=== PATIENT | female | born 1940 | race Caucasian/White ===

== ENCOUNTER 2020-10-27 23:24 | Observation (INO) ==
[2020-10-27 23:52] LABS: Basophils # 0.1 10*3/uL (0.0-0.2); Basophils % 0.5 % (0.0-0.8); Eosinophils # 0.4 10*3/uL (0.0-0.87); Hematocrit 33.2 VOL% (35.7-47.0); Hemoglobin 11.2 GM/DL (12.0-16.0); Immature Granulocytes % 0.5 %; Immature Granulocytes Absolute 0.06 #; Lymphocytes # 2.2 10*3/uL (1.4-4.0); Lymphocytes % 16.5 % (21.3-54.2); Mean Corpuscular HGB Conc 33.7 GM/DL (32-36); Mean Corpuscular Volume 92.7 FL (87-102); Mean Platelet Volume 9.3 FL (9.6-12.0); Monocytes % 8.7 % (1.7-12.7); Neutrophils % 70.8 % (38.7-73.9); Platelet Count 267 T/CUMM (130-400); Red Blood Count 3.58 MC/CUMM (3.8-5.5); White Blood Count 13.1 T/CUMM (4-12)
[2020-10-28 00:09] LABS: Albumin 3.9 G/DL (3.4-5.0); Bilirubin,Total 0.4 MG/DL (0.2-1.0); Calcium 9.5 MG/DL (8.5-10.1); Osmolality,Calculated 253.6 MOS/KG (273-304); Potassium 3.8 MMOL/L (3.5-5.1); Total Protein 7.7 G/DL (5.0-7.5)
[2020-10-28] MEDS ORDERED: NITROGLYCERIN SL 0.4 MG TABLET SL STA (00:09)
[2020-10-28] MEDS ORDERED: FUROSEMIDE 40 MG/4 ML VIAL IV STA (01:02)
[2020-10-28] MEDS ORDERED: MORPHINE 4 MG/1 ML VIAL ONE (01:35)
[2020-10-28] MEDS ORDERED: ONDANSETRON 4 MG/2 ML VIAL ONE (01:35)
[2020-10-28] MEDS ORDERED: ONDANSETRON 4 MG/2 ML VIAL IV ONE (01:36)
[2020-10-28] MEDS ORDERED: MORPHINE 4 MG/1 ML VIAL IV STA ×2 (01:36→02:57)
[2020-10-28] MEDS ORDERED: diphenhydrAMINE CAP 25 MG CAPSULE PO PRN (03:28)
[2020-10-28] MEDS ORDERED: MORPHINE 4 MG/1 ML VIAL IV PRN (03:28)
[2020-10-28] MEDS ORDERED: ONDANSETRON 4 MG/2 ML VIAL IV PRN (03:28)
[2020-10-28] MEDS ORDERED: DEXTROSE 50% 25 GM/50 ML VIAL IV PRN (03:28)
[2020-10-28] MEDS ORDERED: ACETAMINOPHEN 325 MG TABLET PO PRN (03:28)
[2020-10-28] MEDS ORDERED: GLUCAGON 1 MG VIAL IM PRN (03:28)
[2020-10-28] MEDS ORDERED: hydrALAZINE 20 MG/1 ML VIAL IV PRN (03:28)
[2020-10-28] MEDS ORDERED: guaiFENesin/DM ER 600-30 MG TABLET PO PRN (03:28)
[2020-10-28 07:25] LABS: Risk Ratio 3.19
[2020-10-28] MEDS: ALBUTEROL/IPRATROPIUM 3 ML NEB RESP TX SCH ×3 (07:50→19:14)
[2020-10-28 08:26] LABS: Calcium 9.3 MG/DL (8.5-10.1); Osmolality,Calculated 250.8 MOS/KG (273-304); Potassium 3.5 MMOL/L (3.5-5.1)
[2020-10-28] MEDS ORDERED: NITROGLYCERIN SL 0.4 MG TABLET SL PRN (08:41)
[2020-10-28 08:58] LABS: Basophils % 0.3 % (0.0-0.8); Eosinophils # 0.2 10*3/uL (0.0-0.87); Eosinophils % 2.2 % (0.00-10.9); Hematocrit 29.3 VOL% (35.7-47.0); Hemoglobin 10.7 GM/DL (12.0-16.0); Immature Granulocytes % 0.4 %; Immature Granulocytes Absolute 0.04 #; Lymphocytes # 1.9 10*3/uL (1.4-4.0); Lymphocytes % 17.6 % (21.3-54.2); Mean Corpuscular HGB Conc 36.5 GM/DL (32-36); Mean Corpuscular Volume 89.6 FL (87-102); Mean Platelet Volume 9.6 FL (9.6-12.0); Neutrophils % 69.5 % (38.7-73.9); Platelet Count 238 T/CUMM (130-400); Red Blood Count 3.27 MC/CUMM (3.8-5.5); Red Cell Distribution Width 11.9 % (9.3-17.3); White Blood Count 10.6 T/CUMM (4-12)
[2020-10-28] MEDS ORDERED: ENOXAPARIN 40 MG/0.4 ML SYRINGE SUBCUT SCH (09:00)
[2020-10-28] MEDS ORDERED: RIVAROXABAN 20 MG TABLET PO SCH ×2 (09:00→21:00)
[2020-10-28] MEDS ORDERED: LOSARTAN/HCTZ 50-12.5 MG TABLET PO SCH (09:00)
[2020-10-28] MEDS ORDERED: SPIRONOLACTONE 50 MG TABLET PO SCH (09:00)
[2020-10-28 09:15] LABS: Osmolality,Calculated 255.4 MOS/KG (273-304); Potassium 3.4 MMOL/L (3.5-5.1)
[2020-10-28] MEDS ORDERED: MAGNESIUM SULF RIDER 4 GM in PREMIX 1 EACH IV PRN (10:00)
[2020-10-28] MEDS ORDERED: MAGNESIUM SULF RIDER 2 GM in PREMIX 1 EACH IV PRN (10:00)
[2020-10-28] MEDS: PANTOPRAZOLE 40 MG TABLET PO SCH (10:04)
[2020-10-28] MEDS: LABETALOL 200 MG TABLET PO SCH ×2 (10:04→20:38)
[2020-10-28] MEDS: FUROSEMIDE 40 MG/4 ML VIAL IV SCH ×2 (10:05→16:06)
[2020-10-28] MEDS: ASPIRIN EC 81 MG TABLET PO SCH (10:05)
[2020-10-28 10:46] LABS: Troponin I < 0.015 NG/ML (0.00-0.045)
[2020-10-28 13:09] LABS: Troponin I < 0.015 NG/ML (0.00-0.045)
[2020-10-28] MEDS ORDERED: POTASSIUM CHLORIDE 20 MEQ TABLET PO ONE (15:08)
[2020-10-28] MEDS ORDERED: ROSUVASTATIN 10 MG TABLET PO SCH (21:00)
[2020-10-29] MEDS: ALBUTEROL/IPRATROPIUM 3 ML NEB RESP TX SCH ×2 (01:46→07:05)
[2020-10-29 04:42] LABS: Basophils % 0.4 % (0.0-0.8); Eosinophils # 0.3 10*3/uL (0.0-0.87); Eosinophils % 3.2 % (0.00-10.9); Hematocrit 29.6 VOL% (35.7-47.0); Hemoglobin 10.4 GM/DL (12.0-16.0); Immature Granulocytes % 0.3 %; Immature Granulocytes Absolute 0.03 #; Lymphocytes # 2.1 10*3/uL (1.4-4.0); Lymphocytes % 22.9 % (21.3-54.2); Mean Corpuscular HGB Conc 35.1 GM/DL (32-36); Mean Corpuscular Volume 90.5 FL (87-102); Mean Platelet Volume 9.9 FL (9.6-12.0); Monocytes % 13.3 % (1.7-12.7); Neutrophils % 59.9 % (38.7-73.9); Platelet Count 238 T/CUMM (130-400); Red Blood Count 3.27 MC/CUMM (3.8-5.5); Red Cell Distribution Width 12.2 % (9.3-17.3)
[2020-10-29 05:05] LABS: Calcium 9.2 MG/DL (8.5-10.1); Osmolality,Calculated 258.5 MOS/KG (273-304)
[2020-10-29 08:06] VITALS: BP 130/64
[2020-10-29] MEDS: ASPIRIN EC 81 MG TABLET PO SCH (08:44)
[2020-10-29] MEDS: PANTOPRAZOLE 40 MG TABLET PO SCH (08:45)
[2020-10-29] MEDS: LABETALOL 200 MG TABLET PO SCH (08:45)
== END 2020-10-29 11:06 | disposition home or self-care (01) ==
LOC: N.EDINP 23:24 → N.ED 23:24 → SUATTDRO 10-28 01:44 → N.TELES 10-28 04:00
PROVIDERS: ADMIT Internal Medicine; ATTEND Internal Medicine

== ENCOUNTER 2020-12-11 21:08 | Inpatient (IN) ==
[2020-12-11] MEDS ORDERED: hydrALAZINE 20 MG/1 ML VIAL IV STA (21:31)
[2020-12-11 22:23] LABS: Basophils # 0.1 10*3/uL (0.0-0.2); Basophils % 0.5 % (0.0-0.8); Eosinophils # 0.2 10*3/uL (0.0-0.87); Eosinophils % 2.4 % (0.00-10.9); Hematocrit 32.6 VOL% (35.7-47.0); Hemoglobin 11.3 GM/DL (12.0-16.0); Immature Granulocytes % 0.3 %; Immature Granulocytes Absolute 0.03 #; Lymphocytes # 2.5 10*3/uL (1.4-4.0); Lymphocytes % 25.1 % (21.3-54.2); Mean Corpuscular HGB Conc 34.7 GM/DL (32-36); Mean Corpuscular Volume 91.1 FL (87-102); Mean Platelet Volume 9.6 FL (9.6-12.0); Monocytes % 9.4 % (1.7-12.7); Neutrophils % 62.3 % (38.7-73.9); Platelet Count 281 T/CUMM (130-400); Red Blood Count 3.58 MC/CUMM (3.8-5.5); White Blood Count 9.9 T/CUMM (4-12)
[2020-12-11 23:01] LABS: Alanine Aminotransferase 22 U/L (13-56); Albumin 3.6 G/DL (3.4-5.0); Alkaline Phosphatase 84 U/L (45-117); Aspartate Amino Transferase 23 U/L (0-37); Blood Urea Nitrogen 16 MG/DL (7-18); Calcium 9.3 MG/DL (8.5-10.1); Carbon Dioxide 22 MMOL/L (21-32); Estimated Glom Filtration Rate 58 ML/MIN; Glucose 98 MG/DL (74-106); Osmolality,Calculated 253.4 MOS/KG (273-304); Potassium 3.9 MMOL/L (3.5-5.1); Sodium 126 MMOL/L (136-145); Total Protein 7.2 G/DL (6.4-8.2)
[2020-12-11 23:02] LABS: PT Patient Result 11.4 SECS (10.5-12.0)
[2020-12-11] MEDS ORDERED: cefTRIAXone 1,000 MG in SODIUM CHLORIDE 0.9% 100 ML IV STA (23:36)
[2020-12-11] MEDS ORDERED: GLUCAGON 1 MG VIAL IM PRN (23:50)
[2020-12-11] MEDS ORDERED: ONDANSETRON 4 MG/2 ML VIAL IV PRN (23:50)
[2020-12-11] MEDS ORDERED: DEXTROSE 50% 25 GM/50 ML VIAL IV PRN (23:50)
[2020-12-11] MEDS ORDERED: hydrALAZINE 20 MG/1 ML VIAL IV PRN (23:50)
[2020-12-12 00:02] LABS: Bilirubin,Urine Negative (Negative); Blood, Urine Small mg/dL (Negative); Glucose,Urine (UA) Negative (Negative); Hyaline Casts,Urine 3 /LPF (0-3); Ketones,Urine 5 mg/dL (Negative); Nitrite,Urine Negative (Negative); Protein,Urine Negative; RBC,Urine 3 /HPF (0-4); Squamous Epithelial Cell,Urine Moderate /HPF (0-10); Urine Appearance CLOUDY (Clear); Urine Color Yellow (Yellow); Urine Specific Gravity 1.006 (1.001-1.035); Urine Urobilinogen < 2.0 EU/DL (0.2-1.0)
[2020-12-12 00:20] LABS: Barbiturates Screen,Urine Negative (Negative); Benzodiazepines Screen,Urine Negative (Negative); Cannabinoid Screen,Urine Negative (Negative); Opiate Screen,Urine Negative (Negative); Phencyclidine Screen,Urine Negative (Negative)
[2020-12-12] MEDS ORDERED: RIVAROXABAN 20 MG TABLET PO ONE (00:44)
[2020-12-12] MEDS ORDERED: OXYMETAZOLINE 0.05% NASAL SPRAY 15 ML BOTTLE BOTH NARES PRN (02:10)
[2020-12-12] MEDS: cloNIDine 0.1 MG TABLET PO SCH ×3 (02:41→20:55)
[2020-12-12] MEDS: LEVOTHYROXINE 50 MCG TABLET PO SCH (07:45)
[2020-12-12 08:12] LABS: Basophils % 0.3 % (0.0-0.8); Eosinophils # 0.1 10*3/uL (0.0-0.87); Hematocrit 33.4 VOL% (35.7-47.0); Hemoglobin 12.1 GM/DL (12.0-16.0); Immature Granulocytes % 0.5 %; Immature Granulocytes Absolute 0.04 #; Lymphocytes % 11.4 % (21.3-54.2); Mean Corpuscular HGB Conc 36.2 GM/DL (32-36); Mean Corpuscular Volume 88.8 FL (87-102); Mean Platelet Volume 9.7 FL (9.6-12.0); Monocytes % 8.2 % (1.7-12.7); Neutrophils % 78.6 % (38.7-73.9); Platelet Count 274 T/CUMM (130-400); Red Blood Count 3.76 MC/CUMM (3.8-5.5); Red Cell Distribution Width 12.1 % (9.3-17.3); White Blood Count 8.8 T/CUMM (4-12)
[2020-12-12 08:17] LABS: Albumin 3.7 G/DL (3.4-5.0); Bilirubin,Total 0.5 MG/DL (0.2-1.0); Calcium 9.3 MG/DL (8.5-10.1); Osmolality,Calculated 251.5 MOS/KG (273-304); Potassium 4.2 MMOL/L (3.5-5.1); Total Protein 7.3 G/DL (6.4-8.2)
[2020-12-12] MEDS: SPIRONOLACTONE 50 MG TABLET PO SCH (09:16)
[2020-12-12] MEDS: FUROSEMIDE 20 MG TABLET PO SCH (09:16)
[2020-12-12] MEDS: MAGNESIUM OXIDE 400 MG TABLET PO SCH ×2 (09:16→20:55)
[2020-12-12] MEDS: LABETALOL 100 MG TABLET PO SCH ×2 (09:16→20:56)
[2020-12-12] MEDS: PANTOPRAZOLE 40 MG TABLET PO SCH (09:16)
[2020-12-12] MEDS: LOSARTAN 50 MG TABLET PO SCH (09:16)
[2020-12-12] MEDS: CHOLECALCIFEROL 5,000 UNIT TABLET PO SCH (09:17)
[2020-12-12] MEDS: ASCORBIC ACID 500 MG TABLET PO SCH ×2 (09:17→20:55)
[2020-12-12] MEDS: MULTIVITAMIN (BEROCCA) TABLET PO SCH (16:51)
[2020-12-12] MEDS: RIVAROXABAN 20 MG TABLET PO SCH (20:55)
[2020-12-12] MEDS: MONTELUKAST 10 MG TABLET PO SCH (20:55)
[2020-12-12] MEDS: ACETAMINOPHEN 325 MG TABLET PO PRN (20:56)
[2020-12-12] MEDS: cefTRIAXone 1,000 MG in SODIUM CHLORIDE 0.9% 100 ML IV SCH (22:32)
[2020-12-12] MEDS: traZODone 50 MG TABLET PO PRN (22:41)
[2020-12-13] MEDS ORDERED: HALOPERIDOL 5 MG/ML AMP IV ONE (00:07)
[2020-12-13 06:06] LABS: Basophils % 0.3 % (0.0-0.8); Eosinophils # 0.2 10*3/uL (0.0-0.87); Eosinophils % 2.2 % (0.00-10.9); Hematocrit 28.4 VOL% (35.7-47.0); Hemoglobin 9.7 GM/DL (12.0-16.0); Immature Granulocytes % 0.5 %; Immature Granulocytes Absolute 0.04 #; Lymphocytes % 22.4 % (21.3-54.2); Mean Corpuscular HGB Conc 34.2 GM/DL (32-36); Mean Corpuscular Volume 91.6 FL (87-102); Mean Platelet Volume 9.4 FL (9.6-12.0); Monocytes % 9.4 % (1.7-12.7); Neutrophils % 65.2 % (38.7-73.9); Platelet Count 233 T/CUMM (130-400); Red Cell Distribution Width 12.1 % (9.3-17.3); White Blood Count 8.8 T/CUMM (4-12)
[2020-12-13 06:45] LABS: Calcium 8.9 MG/DL (8.5-10.1); Osmolality,Calculated 247.8 MOS/KG (273-304)
[2020-12-13] MEDS: LABETALOL 100 MG TABLET PO SCH ×2 (09:14→23:05)
[2020-12-13] MEDS: PANTOPRAZOLE 40 MG TABLET PO SCH (09:15)
[2020-12-13] MEDS: FUROSEMIDE 20 MG TABLET PO SCH (09:16)
[2020-12-13] MEDS: cloNIDine 0.1 MG TABLET PO SCH ×2 (09:16→23:23)
[2020-12-13] MEDS: LEVOTHYROXINE 50 MCG TABLET PO SCH (09:17)
[2020-12-13] MEDS: LOSARTAN 50 MG TABLET PO SCH (09:18)
[2020-12-13] MEDS: SPIRONOLACTONE 50 MG TABLET PO SCH (09:20)
[2020-12-13] MEDS: MULTIVITAMIN (BEROCCA) TABLET PO SCH (09:20)
[2020-12-13] MEDS: CHOLECALCIFEROL 5,000 UNIT TABLET PO SCH (09:21)
[2020-12-13] MEDS: MAGNESIUM OXIDE 400 MG TABLET PO SCH ×2 (09:22→23:06)
[2020-12-13] MEDS: ASCORBIC ACID 500 MG TABLET PO SCH ×2 (09:22→23:06)
[2020-12-13] MEDS: cefTRIAXone 1,000 MG in SODIUM CHLORIDE 0.9% 100 ML IV SCH (23:04)
[2020-12-13] MEDS: MONTELUKAST 10 MG TABLET PO SCH (23:06)
[2020-12-14 05:26] LABS: Basophils % 0.2 % (0.0-0.8); Eosinophils # 0.2 10*3/uL (0.0-0.87); Eosinophils % 1.7 % (0.00-10.9); Hematocrit 30.5 VOL% (35.7-47.0); Hemoglobin 10.6 GM/DL (12.0-16.0); Immature Granulocytes % 0.6 %; Immature Granulocytes Absolute 0.05 #; Lymphocytes # 2.2 10*3/uL (1.4-4.0); Lymphocytes % 24.9 % (21.3-54.2); Mean Corpuscular HGB Conc 34.8 GM/DL (32-36); Mean Corpuscular Volume 91.6 FL (87-102); Monocytes % 11.1 % (1.7-12.7); Neutrophils % 61.5 % (38.7-73.9); Platelet Count 240 T/CUMM (130-400); Red Blood Count 3.33 MC/CUMM (3.8-5.5); Red Cell Distribution Width 12.3 % (9.3-17.3); White Blood Count 8.8 T/CUMM (4-12)
[2020-12-14 05:48] LABS: Calcium 8.9 MG/DL (8.5-10.1); Osmolality,Calculated 260.9 MOS/KG (273-304)
[2020-12-14 06:08] LABS: Folate 16.07 NG/ML (5.38-24.0); Vitamin B12 868 PG/ML (211-911)
[2020-12-14] MEDS: LEVOTHYROXINE 50 MCG TABLET PO SCH (06:48)
[2020-12-14] MEDS: SPIRONOLACTONE 50 MG TABLET PO SCH (09:55)
[2020-12-14] MEDS: ASCORBIC ACID 500 MG TABLET PO SCH ×2 (09:55→21:02)
[2020-12-14] MEDS: MULTIVITAMIN (BEROCCA) TABLET PO SCH (09:55)
[2020-12-14] MEDS: LOSARTAN 50 MG TABLET PO SCH (09:55)
[2020-12-14] MEDS: FUROSEMIDE 20 MG TABLET PO SCH (09:55)
[2020-12-14] MEDS: LABETALOL 100 MG TABLET PO SCH ×2 (09:55→21:01)
[2020-12-14] MEDS: MAGNESIUM OXIDE 400 MG TABLET PO SCH ×2 (09:55→21:02)
[2020-12-14] MEDS: PANTOPRAZOLE 40 MG TABLET PO SCH (09:55)
[2020-12-14] MEDS: CHOLECALCIFEROL 5,000 UNIT TABLET PO SCH (09:55)
[2020-12-14] MEDS: cloNIDine 0.1 MG TABLET PO SCH ×2 (10:54→21:02)
[2020-12-14] MEDS: POLYETHYLENE GLYCOL POWDER 17 GM PACK PO SCH (13:12)
[2020-12-14] MEDS: MONTELUKAST 10 MG TABLET PO SCH (21:02)
[2020-12-14] MEDS: ACETAMINOPHEN 325 MG TABLET PO PRN (21:02)
[2020-12-14] MEDS: traZODone 50 MG TABLET PO PRN (21:02)
[2020-12-15] MEDS: cefTRIAXone 1,000 MG in SODIUM CHLORIDE 0.9% 100 ML IV SCH (00:23)
[2020-12-15 05:10] LABS: Basophils % 0.4 % (0.0-0.8); Eosinophils # 0.2 10*3/uL (0.0-0.87); Eosinophils % 1.8 % (0.00-10.9); Hematocrit 33.3 VOL% (35.7-47.0); Hemoglobin 11.4 GM/DL (12.0-16.0); Immature Granulocytes % 0.3 %; Immature Granulocytes Absolute 0.03 #; Lymphocytes % 21.7 % (21.3-54.2); Mean Corpuscular HGB Conc 34.2 GM/DL (32-36); Mean Platelet Volume 9.7 FL (9.6-12.0); Monocytes % 10.9 % (1.7-12.7); Neutrophils % 64.9 % (38.7-73.9); Platelet Count 257 T/CUMM (130-400); Red Blood Count 3.58 MC/CUMM (3.8-5.5); Red Cell Distribution Width 12.2 % (9.3-17.3); White Blood Count 9.4 T/CUMM (4-12)
[2020-12-15 05:40] LABS: Calcium 9.4 MG/DL (8.5-10.1); Osmolality,Calculated 262.8 MOS/KG (273-304); Potassium 3.9 MMOL/L (3.5-5.1)
[2020-12-15] MEDS: LEVOTHYROXINE 50 MCG TABLET PO SCH (06:19)
[2020-12-15] MEDS: SPIRONOLACTONE 50 MG TABLET PO SCH (10:07)
[2020-12-15] MEDS: MULTIVITAMIN (BEROCCA) TABLET PO SCH (10:07)
[2020-12-15] MEDS: MAGNESIUM OXIDE 400 MG TABLET PO SCH ×2 (10:07→20:54)
[2020-12-15] MEDS: LOSARTAN 50 MG TABLET PO SCH (10:07)
[2020-12-15] MEDS: cloNIDine 0.1 MG TABLET PO SCH ×2 (10:07→20:53)
[2020-12-15] MEDS: CHOLECALCIFEROL 5,000 UNIT TABLET PO SCH (10:07)
[2020-12-15] MEDS: LABETALOL 100 MG TABLET PO SCH ×2 (10:07→20:54)
[2020-12-15] MEDS: POLYETHYLENE GLYCOL POWDER 17 GM PACK PO SCH (10:08)
[2020-12-15] MEDS: ASCORBIC ACID 500 MG TABLET PO SCH ×2 (10:08→20:54)
[2020-12-15] MEDS: PANTOPRAZOLE 40 MG TABLET PO SCH (10:08)
[2020-12-15] MEDS: FUROSEMIDE 20 MG TABLET PO SCH (10:08)
[2020-12-15] MEDS: RIVAROXABAN 20 MG TABLET PO SCH (20:54)
[2020-12-15] MEDS: MONTELUKAST 10 MG TABLET PO SCH (20:54)
[2020-12-16] MEDS: LEVOTHYROXINE 50 MCG TABLET PO SCH (06:42)
[2020-12-16] MEDS: POLYETHYLENE GLYCOL POWDER 17 GM PACK PO SCH (09:23)
[2020-12-16] MEDS: SPIRONOLACTONE 50 MG TABLET PO SCH (09:23)
[2020-12-16] MEDS: CHOLECALCIFEROL 5,000 UNIT TABLET PO SCH (09:23)
[2020-12-16] MEDS: LABETALOL 100 MG TABLET PO SCH (09:23)
[2020-12-16] MEDS: cloNIDine 0.1 MG TABLET PO SCH ×2 (09:23→09:26)
[2020-12-16] MEDS: LOSARTAN 50 MG TABLET PO SCH (09:23)
[2020-12-16] MEDS: MULTIVITAMIN (BEROCCA) TABLET PO SCH (09:24)
[2020-12-16] MEDS: ASCORBIC ACID 500 MG TABLET PO SCH (09:24)
[2020-12-16] MEDS: MAGNESIUM OXIDE 400 MG TABLET PO SCH (09:25)
[2020-12-16] MEDS: FUROSEMIDE 20 MG TABLET PO SCH (09:26)
[2020-12-16] MEDS: PANTOPRAZOLE 40 MG TABLET PO SCH (09:26)
[2020-12-16 12:49] VITALS: BP 125/58
== END 2020-12-16 13:30 | DRG 689 ==
LOC: N.EDINP 21:08 → N.ED 21:08 → N.EDINP 12-12 16:12 → N.4E 12-12 16:19 → SUATTDRO 12-13 13:06
PROVIDERS: ADMIT Internal Medicine; ATTEND Internal Medicine